=== PATIENT | female | born 1955 | race Caucasian/White ===

== ENCOUNTER 2019-09-12 06:31 | Day surgery (SDC) | payer BC ==
[2019-09-12] MEDS ORDERED: Propofol 200 MG/20 ML SDV IV ONE (06:32)
[2019-09-12] MEDS ORDERED: Lidocaine 1% PF 2 ML SDV INJECT ONE (06:32)
[2019-09-12] MEDS ORDERED: Sodium Chloride 0.9% 10 ML Syringe FLUSH PRN (07:00)
[2019-09-12] MEDS ORDERED: Lactated Ringers 1,000 ML IV SCH (07:00)
--- NOTE | 2019-09-12 08:35 | PCM.OPNOTE ---
- General Post-Op/Procedure Note Date of Surgery/Procedure: 09/12/19 Operative Procedure(s): c scope Findings: normal exam Pre Op Diagnosis: screening for colon cancer Post-Op Diagnosis: normal exam Anesthesia Technique: ISIDRO Primary Surgeon: Kwasi Deleon Anesthesia Provider: Bebo Araya Pathology: none Complications: None Condition: Good Free Text/Narrative:: see dictation
--- NOTE | 2019-09-12 10:04 | PREOP ---
ADMISSION DATE: 09/12/2019 CHIEF COMPLAINT: Colon cancer screening. HISTORY OF PRESENT ILLNESS: This 64-year-old white female presents for a routine followup colonoscopy. She denies any significant GI issues. She has a negative family history as well. SOCIAL HISTORY: The patient is a former smoker. Denies any significant alcohol use. MEDICATIONS: Essentially are; 1. Multivitamins. 2. Probiotics. ALLERGIES: She has no known drug allergies. PAST MEDICAL HISTORY: Significant for history of atypical nevi. PAST SURGICAL HISTORY: Significant for bunionectomy, hemorrhoidectomy, and oophorectomy on the left. REVIEW OF SYSTEMS: The patient denies any HEENT issues, denies any pulmonary, cardiac, GI, genitourinary, musculoskeletal, or neurologic issues. PHYSICAL EXAMINATION: GENERAL: This is a well-developed, well-nourished white female, appearing in no acute distress. HEENT: Grossly within normal limits. LUNGS: Clear to auscultation. HEART: Regular rate and rhythm. ABDOMEN: Soft and nontender. ASSESSMENT: This 64-year-old white female for a screening colonoscopy. Procedure and risks explained to the patient to include bleeding, perforation, and infection. The patient expresses understanding, and she asked us to proceed. /[id number] /SRINI
--- NOTE | 2019-09-12 17:29 | OR ---
DATE OF OPERATION: 09/12/2019 SURGEON: Kwasi Deleon MD PROCEDURE PERFORMED: Colonoscopy. PREOPERATIVE DIAGNOSIS: Need for colon cancer screening. POSTOPERATIVE DIAGNOSIS: Normal exam. INDICATIONS FOR PROCEDURE: Willow is a 64-year-old white female, who presents now for screening colonoscopy. She was offered and accepted same. DESCRIPTION OF OPERATION: After an excellent IV sedation was administered, digital rectal exam was performed. No marked abnormality was noted. The flexible colonoscope was inserted and advanced to the cecum. Prep was excellent. Following findings were noted: Ascending colon, unremarkable. Transverse colon, unremarkable. She does have a rather sharp angle at her splenic flexure, but otherwise no mucosal abnormalities were noted. Descending colon, unremarkable. Sigmoid and rectum, unremarkable. The patient tolerated the procedure well. RECOMMENDATIONS: Repeat colonoscopy in 10 years or sooner on a p.r.n. basis. /[id number] /SRINI
== END 2019-09-12 09:37 | disposition home or self-care (01) ==
LOC: FB.SDS 06:31
PROVIDERS: ATTEND Surgery
DX: Z12.11 Encounter for screening for malignant neoplasm of colon (principal); Z87.891 Personal history of nicotine dependence
CPT/HCPCS: 45378; 87635; J2001; J2704; J7120; U0002

== ENCOUNTER 2024-09-26 06:09 | Day surgery (SDC) | payer BC, MEDICARE ==
[2024-09-26] MEDS ORDERED: Midazolam 1 MG/ML 2 ML SDV IV ONE (06:10)
[2024-09-26] MEDS ORDERED: Propofol 200 MG/20 ML SDV IV ONE (06:10)
[2024-09-26] MEDS ORDERED: Sodium Chloride 0.9% 10 ML Syringe FLUSH PRN (06:15)
[2024-09-26] MEDS: Lactated Ringers 1,000 ML IV SCH (06:51)
== END 2024-09-26 08:46 | disposition home or self-care (01) ==
LOC: FB.SDS 06:09
PROVIDERS: ATTEND Surgery
DX: K21.9 Gastro-esophageal reflux disease without esophagitis (principal); K22.89 Other specified disease of esophagus; R13.10 Dysphagia, unspecified; R49.0 Dysphonia; R63.4 Abnormal weight loss; Z79.899 Other long term (current) drug therapy; Z87.891 Personal history of nicotine dependence
CPT/HCPCS: 43235; A9270; J2003; J2250; J2704; J7120; 00731